=== PATIENT | female | born 1995 | race Caucasian/White ===

== ENCOUNTER 2018-02-22 12:40 | Emergency (ER) | payer MEDICAID, SELFPAY ==
[2018-02-22 12:58] VITALS: BP 126/59; PULSE 88; RESP 16; TEMP 36.8; O2SAT 100
--- NOTE | 2018-02-22 13:43 | W.ED.GENAD ---
Discharge Plan Disposition Patient Disposition: HOME Condition: Good Discharge Details Chief Complaint: Sorethroat Clinical Impression: Infection, respiratory tract Primary Care Provider: Amelia Pedraza ED Provider: Bang Perry Home Meds and New Rx's Prescriptions: New amoxicillin-pot clavulanate [Augmentin] 875-125 mg tablet 1 tab PO BID Qty: 14 RF: 0 Continue omeprazole 20 MG capsule,delayed release(DR/EC) 20 mg PO DAILY RF: 0 Discharge Instructions Instructions: Upper Respiratory Infection (ED) Additional Instructions: Feel free to return to the emergency department for any new or worsening symptoms otherwise follow-up with your primary care provider. You may also take [id number] symptomatic cough and cold medication as needed to relieve your symptoms per Stand Alone Forms: Work Release Discharge Data Discharge Date/Time-TO BE ENTERED AT DEPARTURE: 02/22/18 13:55 Medical Decision Making Patient presenting to the emergency department for chief complaint of sore throat and sinus pressure. Patient states that she had symptoms for 2 weeks then over the past 3 days she thought she improved and last night she began having fever and chills, worsening sinus pressure and sore throat. 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 Physical exam does show some cervical lymphadenopathy but no meningeal signs, moderate sinus tenderness to palpation, normal respiratory and cardiac exam, otherwise unremarkable HEENT exam. Given that patient has double illness sign with subjective fever and chills worsening symptoms I do feel that patient requires antibiotic therapy and patient placed on Augmentin twice daily for 7 days. Patient encouraged to return for any new or worsening symptoms otherwise to follow-up with her primary care provider for reassessment if not improving. After discussion of diagnosis and plan of care patient is no further needs, questions, or concerns and states clear understanding to return to the emergency department for any worsening symptoms. HPI General Mode of arrival: ambulatory. Date/Time Provider Initiated Documentation: 02/22/18 13:31. Limitations to Documentation: no limitations. Information obtained by: patient. History of Present Illness 22 year old F presents to the emergency department with the chief complaint of Sore throat/sinus pressure, described as moderate, with intensity rated at 7. Quality is described as aching, and is localized to the mouth (sore throat). Patient started experiencing this week(s) (3) and it has been intermittent. No relieving factors improve symptom(s), No exacerbating factors reported . Patient did receive the following treatments prior to arrival, none Related Data Home Medications Medication Instructions Recorded Confirmed omeprazole 20 mg PO DAILY 06/13/17 02/22/18 amoxicillin-pot clavulanate 1 tab PO BID #14 tab 02/22/18 [Augmentin] Previous Rx's Medication Instructions Recorded amoxicillin-pot clavulanate 1 tab PO BID #14 tab 02/22/18 [Augmentin] Allergies Allergy/AdvReac Type Severity Reaction Status Date / Time bupropion HCl Allergy Intermediate Hives Unverified 02/22/18 13:01 [From Wellbutrin] General Stated Complaint: Sorethroat RASHAUN: 4 Review of Systems Constitutional Denies body ache(s), Reports chills, Reports fever(s), Reports headache(s) and Reports malaise Eyes Denies eye discharge ENT Denies otalgia, Reports headache(s), Reports nasal congestion, Reports neck pain, Reports sinus pain, Reports sinus pressure, Reports sore throat and Denies throat swelling Cardiovascular Denies chest pain and Denies dyspnea Respiratory Reports cough and Denies dyspnea Musculoskeletal Denies joint swelling and Reports neck pain Integumentary/Breasts Denies rash Neurologic Reports headache(s) Allergic/Immunologic Denies throat swelling PFS Social History Smoking/Tobacco Use Status: Never Exam Const General: cooperative, comfortable and no acute distress Orientation: alert and awake [facility] Head: normal to inspection, normocephalic and atraumatic Ears: hearing grossly normal bilaterally and TM's normal bilaterally General nose exam: external nose normal Face and sinus: no erythema and sinus tenderness frontal, ethmoid and maxillary Mouth: oral mucosae normal, no drooling, no muffled voice and no trismus Throat: posterior oropharynx normal Neck Neck: normal visual inspection, full ROM, lymphadenopathy noted, no meningeal signs, trachea midline and supple Resp Effort & Inspection: normal respiratory effort, able to speak in complete sentences and cough Quality of cough: dry Auscultation: clear to auscultation bilaterally Cardio Rate: regular rate Rhythm: regular rhythm Heart Sounds: S1 normal, S2 normal, normal S1 and S2, no click, no gallops, no murmurs and no rubs Skin General skin exam: no rashes or lesions noted and dry skin (warm) Neuro General: alert, awake, oriented x3, gait normal and moves all extremities Cognition: normal cognition Speech: speech normal Course Vital Signs Temperature 36.8 C 02/22/18 12:58 Pulse 88 02/22/18 12:58 Respiratory Rate 16 02/22/18 12:58 Blood Pressure 126/59 L 02/22/18 12:58 Pulse Oximetry 100 02/22/18 12:58 Temperature 36.8 C 02/22/18 12:58 Temperature Source Skin 02/22/18 12:58 Pulse 88 02/22/18 12:58 Respiratory Rate 16 02/22/18 12:58 Respiratory Effort 02/22/18 13:00 Blood Pressure 126/59 L 02/22/18 12:58 Blood Pressure Position Sitting 02/22/18 12:58 Pulse Oximetry 100 02/22/18 12:58 Oxygen Delivery Method Room Air 02/22/18 12:58 Oxygen Flow Rate 0 02/22/18 12:58 Lab/Test Results Lab/Test Results: 02/22/18 13:05 Pharynx Streptococcus Screen (KENY) - Pending POC Strep Test-EZRA(Rapid) Start: 02/22/18 13:17 Freq: .Rapid Strep Test Status: Active Protocol: Document 02/22/18 13:18 SS (Rec: 02/22/18 13:18 SS [id number]) Strep test-EZRA(Rapid)-POC POC-Strep test-EZRA (Rapid) Negative POC-Strep test-EZRA (Rapid) Negative
--- NOTE | 2018-02-22 13:47 | ED.GENADUL_ITS ---
Discharge Plan Disposition Patient Disposition: HOME Condition: Good Discharge Details Chief Complaint: Sorethroat Clinical Impression: Infection, respiratory tract Primary Care Provider: Amelia Pedraza ED Provider: Bang Perry Home Meds and New Rx's Prescriptions: New amoxicillin-pot clavulanate [Augmentin] 875-125 mg tablet 1 tab PO BID Qty: 14 RF: 0 Continue omeprazole 20 MG capsule,delayed release(DR/EC) 20 mg PO DAILY RF: 0 Discharge Instructions Instructions: Upper Respiratory Infection (ED) Additional Instructions: Feel free to return to the emergency department for any new or worsening symptoms otherwise follow-up with your primary care provider. You may also take [id number] symptomatic cough and cold medication as needed to relieve your symptoms per Stand Alone Forms: Work Release Discharge Data Discharge Date/Time-TO BE ENTERED AT DEPARTURE: 02/22/18 13:55 Medical Decision Making Patient presenting to the emergency department for chief complaint of sore throat and sinus pressure. Patient states that she had symptoms for 2 weeks then over the past 3 days she thought she improved and last night she began having fever and chills, worsening sinus pressure and sore throat. 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 Physical exam does show some cervical lymphadenopathy but no meningeal signs, moderate sinus tenderness to palpation, normal respiratory and cardiac exam, otherwise unremarkable HEENT exam. Given that patient has double illness sign with subjective fever and chills worsening symptoms I do feel that patient requires antibiotic therapy and patient placed on Augmentin twice daily for 7 days. Patient encouraged to return for any new or worsening symptoms otherwise to follow-up with her primary care provider for reassessment if not improving. After discussion of diagnosis and plan of care patient is no further needs, questions, or concerns and states clear understanding to return to the emergency department for any worsening symptoms. HPI General Mode of arrival: ambulatory . Date/Time Provider Initiated Documentation: 02/22/18 13:31 . Limitations to Documentation: no limitations . Information obtained by: patient . History of Present Illness 22 year old F presents to the emergency department with the chief complaint of Sore throat/sinus pressure, described as moderate, with intensity rated at 7. Quality is described as aching, and is localized to the mouth (sore throat). Patient started experiencing this week(s) (3) and it has been intermittent. No relieving factors improve symptom(s), No exacerbating factors reported . Patient did receive the following treatments prior to arrival, none Related Data Home Medications Medication Instructions Recorded Confirmed omeprazole 20 mg PO DAILY 06/13/17 02/22/18 amoxicillin-pot clavulanate 1 tab PO BID #14 tab 02/22/18 [Augmentin] Previous Rx's Medication Instructions Recorded amoxicillin-pot clavulanate 1 tab PO BID #14 tab 02/22/18 [Augmentin] Allergies Allergy/AdvReac Type Severity Reaction Status Date / Time bupropion HCl Allergy Intermediate Hives Unverified 02/22/18 13:01 [From Wellbutrin] General Stated Complaint: Sorethroat RASHAUN: 4 Review of Systems Constitutional Denies body ache(s), Reports chills, Reports fever(s), Reports headache(s) and Reports malaise Eyes Denies eye discharge ENT Denies otalgia, Reports headache(s), Reports nasal congestion, Reports neck pain , Reports sinus pain, Reports sinus pressure, Reports sore throat and Denies throat swelling Cardiovascular Denies chest pain and Denies dyspnea Respiratory Reports cough and Denies dyspnea Musculoskeletal Denies joint swelling and Reports neck pain Integumentary/Breasts Denies rash Neurologic Reports headache(s) Allergic/Immunologic Denies throat swelling PFS Social History Smoking/Tobacco Use Status: Never Exam Const General: cooperative, comfortable and no acute distress Orientation: alert and awake [facility] Head: normal to inspection, normocephalic and atraumatic Ears: hearing grossly normal bilaterally and TM's normal bilaterally General nose exam: external nose normal Face and sinus: no erythema and sinus tenderness frontal, ethmoid and maxillary Mouth: oral mucosae normal, no drooling, no muffled voice and no trismus Throat: posterior oropharynx normal Neck Neck: normal visual inspection, full ROM, lymphadenopathy noted, no meningeal signs, trachea midline and supple Resp Effort & Inspection: normal respiratory effort, able to speak in complete sentences and cough Quality of cough: dry Auscultation: clear to auscultation bilaterally Cardio Rate: regular rate Rhythm: regular rhythm Heart Sounds: S1 normal, S2 normal, normal S1 and S2, no click, no gallops, no murmurs and no rubs Skin General skin exam: no rashes or lesions noted and dry skin (warm) Neuro General: alert, awake, oriented x3, gait normal and moves all extremities Cognition: normal cognition Speech: speech normal Course Vital Signs Temperature 36.8 C 02/22/18 12:58 Pulse 88 02/22/18 12:58 Respiratory Rate 16 02/22/18 12:58 Blood Pressure 126/59 L 02/22/18 12:58 Pulse Oximetry 100 02/22/18 12:58 Temperature 36.8 C 02/22/18 12:58 Temperature Source Skin 02/22/18 12:58 Pulse 88 02/22/18 12:58 Respiratory Rate 16 02/22/18 12:58 Respiratory Effort 02/22/18 13:00 Blood Pressure 126/59 L 02/22/18 12:58 Blood Pressure Position Sitting 02/22/18 12:58 Pulse Oximetry 100 02/22/18 12:58 Oxygen Delivery Method Room Air 02/22/18 12:58 Oxygen Flow Rate 0 02/22/18 12:58 Lab/Test Results Lab/Test Results: 02/22/18 13:05 Pharynx Streptococcus Screen (KENY) - Pending POC Strep Test-EZRA(Rapid) Start: 02/22/18 13: 17 Freq: .Rapid Strep Test Status: Active Protocol: Document 02/22/18 13:18 SS (Rec: 02/22/18 13:18 SS [id number]) Strep test-EZRA(Rapid)-POC POC-Strep test-EZRA (Rapid) Negative POC-Strep test-EZRA (Rapid) Negative
[2018-02-22] MEDS: Amoxicillin 875/Clav. 125 TAB PO (14:00)
== END 2018-02-22 13:55 | disposition home or self-care (01) ==
PROVIDERS: Emergency Provider Nurse Practitioner Family; PCP Registered Nurse
DX: J06.9 Acute upper respiratory infection, unspecified (principal)
CPT/HCPCS: 87880; 99283; 87081

== ENCOUNTER 2018-04-11 14:10 | Outpatient (CLI) | payer MEDICAID, SELFPAY ==
[2018-04-11 15:22] LABS: Bilirubin Negative (Negative); Blood Negative (Negative); Clarity Clear; Glucose Negative (Negative); Ketones Negative (Negative); Leukocyte Esterase Negative (Negative); Nitrite Negative (Negative); Specific Gravity 1.015 (1.005-1.025); Urobilinogen 0.2 EU/dL (Up TO 0.2); pH 5.5 (5-8)
== END 2018-04-11 14:30 ==
PROVIDERS: PCP Registered Nurse; Visit Provider Registered Nurse
DX: N39.0 Urinary tract infection, site not specified (principal)
CPT/HCPCS: 81003

== ENCOUNTER 2018-07-16 10:27 | Emergency (ER) | payer MEDICAID, SELFPAY ==
[2018-07-16 10:29] VITALS: BP 132/79; PULSE 125; TEMP 36.7; O2SAT 98
--- NOTE | 2018-07-16 10:40 | W.ED.GENAD ---
Discharge Plan Disposition Patient Disposition: HOME Condition: Stable Discharge Details Chief Complaint: RespSymp Clinical Impression: URI (upper respiratory infection) Primary Care Provider: Amelia Pedraza ED Provider: Bang Perry Home Meds and New Rx's Prescriptions: New benzonatate 200 mg capsule 200 mg PO TID PRN (Reason: cough) Qty: 30 RF: 0 Continued omeprazole 20 MG capsule,delayed release(DR/EC) 20 mg PO DAILY RF: 0 Discontinued amoxicillin-pot clavulanate [Augmentin] 875-125 mg tablet 1 tab PO BID Qty: 14 RF: 0 Discharge Instructions Instructions: Upper Respiratory Infection (ED) Additional Instructions: You may take gexl-mef-eproaws cough and cold medication such as Tylenol cold and flu severe, DayQuil or NyQuil, or other symptomatic treatments that are available [id number] just take as directed on packaging. Return immediately to the emergency department or get reassessment with your primary care provider for any significant worsening of symptoms or return of fever after you have had illness 1 week. Stay well-hydrated and get plenty of rest during illness. Stand Alone Forms: Work Release Referrals: Amelia Pedraza [Primary Care Provider] - (As needed for reassessment) Medical Decision Making Patient presenting to the emergency department for chief complaint of cold-like symptoms. Patient states proximally 4 days ago she started having significant nasal congestion, sinus pressure, drainage of her nose, sore throat and cough. 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 Physical exam shows mild posterior pharynx erythema, anterior cervical lymphadenopathy, tachycardia, clear lung sounds no focal findings, otherwise stable nontoxic appearing patient. Plan to check for influenza as I am highly suspicious of this but otherwise do not find any emergent findings suggestive of meningitis, pneumonia, peritonsillar abscess retropharyngeal abscess or epiglottitis. Patient was offered IV fluids due to tachycardia and acute viral illness but she refused IV treatment. Patient given oral hydration pending result. Influenza was negative . Patient reassessed and remained stable with reduction of heart rate.. She states her biggest complaint is her sinus pressure. Given duration of symptoms and patient being afebrile I do not feel that this requires antibiotic says this time as I am more suggestive symptoms of viral etiology so plan to treat symptomatically with [id number] medications along with Tessalon Perles for any secondary associated cough and thorough discussion of return precautions were performed with patient. After discussion of diagnosis and plan of care patient has no further needs, questions, or concerns and states clear understanding to return to the emergency department for any worsening symptoms. HPI General Mode of arrival: ambulatory. Date/Time Provider Initiated Documentation: 07/16/18 10:35. Limitations to Documentation: no limitations. Information obtained by: patient and RN notes reviewed. History of Present Illness 22 year old F presents to the emergency department with the chief complaint of [place] symptoms, described as moderate, with intensity rated at 6. Quality is described as aching, and is localized to the face (sinus). Patient started experiencing this day(s) (4) and it has been constant. Patient did receive the following treatments prior to arrival, other (Vics congestion) Related Data Home Medications Medication Instructions Recorded Confirmed omeprazole 20 mg PO DAILY 06/13/17 02/22/18 benzonatate 200 mg PO TID PRN #30 cap 07/16/18 Previous Rx's Medication Instructions Recorded benzonatate 200 mg PO TID PRN #30 cap 07/16/18 Allergies Allergy/AdvReac Type Severity Reaction Status Date / Time bupropion HCl Allergy Intermediate Hives Unverified 07/16/18 10:32 [From Wellbutrin] General Stated Complaint: RespSymp RASHAUN: 3 Review of Systems Constitutional Reports body ache(s), Reports chills, Reports fever(s), Reports headache(s) and Reports malaise Eyes Denies eye discharge ENT Reports as per HPI, Denies ear discharge, Denies otalgia, Reports headache(s), Reports nasal congestion, Reports nasal discharge, Denies neck pain, Reports sinus pain, Reports sinus pressure, Reports sore throat and Denies throat swelling Cardiovascular Denies chest pain and Denies dyspnea Respiratory Reports cough, Reports pain with cough and Denies dyspnea Musculoskeletal Denies joint swelling and Denies neck pain Integumentary/Breasts Denies rash Neurologic Reports headache(s) Allergic/Immunologic Denies throat swelling [facility] Social History Smoking and Tabacco status: Never Exam Const General: cooperative, comfortable and no acute distress Orientation: alert and awake [place] Head: normal to inspection, normocephalic and atraumatic Ears: hearing grossly normal bilaterally and TM's normal bilaterally General nose exam: external nose normal Face and sinus: normal facial exam, sinuses nontender and no erythema Mouth: oral mucosae normal, no drooling, no muffled voice and no trismus Throat: tonsils normal, uvula midline and posterior oropharynx abnormal erythema (mild) Neck Neck: normal visual inspection, full ROM, no meningeal signs, trachea midline, supple and lymphadenopathy (Anterior cervical) Resp Effort & Inspection: normal respiratory effort, able to speak in complete sentences and cough Quality of cough: dry Auscultation: clear to auscultation bilaterally Cardio Rate: tachycardic Rhythm: regular rhythm Heart Sounds: S1 normal, S2 normal, normal S1 and S2, no click, no gallops, no murmurs and no rubs Skin General skin exam: no rashes or lesions noted and dry skin (warm) Neuro General: alert, awake, oriented x3, gait normal and moves all extremities Cognition: normal cognition Speech: speech normal Course Vital Signs Temperature 36.7 C 07/16/18 10:29 Pulse 125 H 07/16/18 10:29 Blood Pressure 132/79 07/16/18 10:29 Pulse Oximetry 98 07/16/18 10:29 Temperature 36.7 C 07/16/18 10:29 Temperature Source Skin 07/16/18 10:29 Pulse 125 H 07/16/18 10:29 Blood Pressure 132/79 07/16/18 10:29 Pulse Oximetry 98 07/16/18 10:29 Pain Level 8 07/16/18 10:29
--- NOTE | 2018-07-16 10:46 | ED.GENADUL_ITS ---
Discharge Plan Disposition Patient Disposition: HOME Condition: Stable Discharge Details Chief Complaint: RespSymp Clinical Impression: URI (upper respiratory infection) Primary Care Provider: Amelia Pedraza ED Provider: Bang Perry Home Meds and New Rx's Prescriptions: New benzonatate 200 mg capsule 200 mg PO TID PRN (Reason: cough) Qty: 30 RF: 0 Continued omeprazole 20 MG capsule,delayed release(DR/EC) 20 mg PO DAILY RF: 0 Discontinued amoxicillin-pot clavulanate [Augmentin] 875-125 mg tablet 1 tab PO BID Qty: 14 RF: 0 Discharge Instructions Instructions: Upper Respiratory Infection (ED) Additional Instructions: You may take kloc-ljr-[id number] cough and cold medication such as Tylenol cold and flu severe, DayQuil or NyQuil, or other symptomatic treatments that are available [id number] just take as directed on packaging. Return immediately to the emergency department or get reassessment with your primary care provider for any significant worsening of symptoms or return of fever after you have had illness 1 week. Stay well-hydrated and get plenty of rest during illness. Stand Alone Forms: Work Release Referrals: Amelia Pedraza [Primary Care Provider] - (As needed for reassessment) Medical Decision Making Patient presenting to the emergency department for chief complaint of cold-like symptoms. Patient states proximally 4 days ago she started having significant nasal congestion, sinus pressure, drainage of her nose, sore throat and cough. 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 Physical exam shows mild posterior pharynx erythema, anterior cervical lymphadenopathy, tachycardia, clear lung sounds no focal findings, otherwise stable nontoxic appearing patient. Plan to check for influenza as I am highly suspicious of this but otherwise do not find any emergent findings suggestive of meningitis, pneumonia, peritonsillar abscess retropharyngeal abscess or epiglottitis. Patient was offered IV fluids due to tachycardia and acute viral illness but she refused IV treatment. Patient given oral hydration pending result. Influenza was negative . Patient reassessed and remained stable with reduction of heart rate.. She states her biggest complaint is her sinus pressure. Given duration of symptoms and patient being afebrile I do not feel that this requires antibiotic says this time as I am more suggestive symptoms of viral etiology so plan to treat symptomatically with vekr-[id number] medications along with Tessalon Perles for any secondary associated cough and thorough discussion of return precautions were performed with patient. After discussion of diagnosis and plan of care patient has no further needs, questions, or concerns and states clear understanding to return to the emergency department for any worsening symptoms. HPI General Mode of arrival: ambulatory . Date/Time Provider Initiated Documentation: 07/16/18 10:35 . Limitations to Documentation: no limitations . Information obtained by: patient and RN notes reviewed . History of Present Illness 22 year old F presents to the emergency department with the chief complaint of [place] symptoms, described as moderate, with intensity rated at 6. Quality is described as aching, and is localized to the face (sinus). Patient started experiencing this day(s) (4) and it has been constant. Patient did receive the following treatments prior to arrival, other (Vics congestion) Related Data Home Medications Medication Instructions Recorded Confirmed omeprazole 20 mg PO DAILY 06/13/17 02/22/18 benzonatate 200 mg PO TID PRN #30 cap 07/16/18 Previous Rx's Medication Instructions Recorded benzonatate 200 mg PO TID PRN #30 cap 07/16/18 Allergies Allergy/AdvReac Type Severity Reaction Status Date / Time bupropion HCl Allergy Intermediate Hives Unverified 07/16/18 10:32 [From Wellbutrin] General Stated Complaint: RespSymp RASHAUN: 3 Review of Systems Constitutional Reports body ache(s), Reports chills, Reports fever(s), Reports headache(s) and Reports malaise Eyes Denies eye discharge ENT Reports as per HPI, Denies ear discharge, Denies otalgia, Reports headache(s), Reports nasal congestion, Reports nasal discharge, Denies neck pain, Reports sinus pain, Reports sinus pressure, Reports sore throat and Denies throat swelling Cardiovascular Denies chest pain and Denies dyspnea Respiratory Reports cough, Reports pain with cough and Denies dyspnea Musculoskeletal Denies joint swelling and Denies neck pain Integumentary/Breasts Denies rash Neurologic Reports headache(s) Allergic/Immunologic Denies throat swelling [facility] Social History Smoking and Tabacco status: Never Exam Const General: cooperative, comfortable and no acute distress Orientation: alert and awake HENAZ Head: normal to inspection, normocephalic and atraumatic Ears: hearing grossly normal bilaterally and TM's normal bilaterally General nose exam: external nose normal Face and sinus: normal facial exam, sinuses nontender and no erythema Mouth: oral mucosae normal, no drooling, no muffled voice and no trismus Throat: tonsils normal, uvula midline and posterior oropharynx abnormal erythema (mild) Neck Neck: normal visual inspection, full ROM, no meningeal signs, trachea midline, supple and lymphadenopathy (Anterior cervical) Resp Effort & Inspection: normal respiratory effort, able to speak in complete sentences and cough Quality of cough: dry Auscultation: clear to auscultation bilaterally Cardio Rate: tachycardic Rhythm: regular rhythm Heart Sounds: S1 normal, S2 normal, normal S1 and S2, no click, no gallops, no murmurs and no rubs Skin General skin exam: no rashes or lesions noted and dry skin (warm) Neuro General: alert, awake, oriented x3, gait normal and moves all extremities Cognition: normal cognition Speech: speech normal Course Vital Signs Temperature 36.7 C 07/16/18 10:29 Pulse 125 H 07/16/18 10:29 Blood Pressure 132/79 07/16/18 10:29 Pulse Oximetry 98 07/16/18 10:29 Temperature 36.7 C 07/16/18 10:29 Temperature Source Skin 07/16/18 10:29 Pulse 125 H 07/16/18 10:29 Blood Pressure 132/79 07/16/18 10:29 Pulse Oximetry 98 07/16/18 10:29 Pain Level 8 07/16/18 10:29
[2018-07-16 11:21] VITALS: PULSE 107
== END 2018-07-16 11:29 | disposition home or self-care (01) ==
PROVIDERS: Emergency Provider Nurse Practitioner Family; PCP Registered Nurse
DX: J06.9 Acute upper respiratory infection, unspecified (principal)
CPT/HCPCS: 87449; 99283

== ENCOUNTER 2021-11-12 19:02 | Outpatient (REF) | payer MEDICAID, SELFPAY | END 2021-11-12 19:03 | disposition home or self-care (01) | LOC: LBN 19:02 | PROVIDERS: PCP Registered Nurse; Visit Provider Physician Assistant Medical | DX: J02.9 Acute pharyngitis, unspecified (principal) | CPT/HCPCS: 87070 ==

== ENCOUNTER 2021-12-19 16:47 | Outpatient (REF) | payer MEDICAID, SELFPAY | END 2021-12-19 16:48 | disposition home or self-care (01) | LOC: LBN 16:47 | PROVIDERS: PCP Registered Nurse; Visit Provider Physician Assistant Medical | DX: R30.0 Dysuria (principal) | CPT/HCPCS: 87077; 87086; 87186 ==

== ENCOUNTER 2024-06-03 13:32 | Emergency (ER) | payer MEDICAID, SELFPAY ==
[2024-06-03 13:39] VITALS: BP 120/80; PULSE 103; RESP 18; TEMP 36.5; O2SAT 99
[2024-06-03 13:42] VITALS: BP 120/80; PULSE 103; RESP 18; TEMP 36.5; O2SAT 99
[2024-06-03 13:48] VITALS: RESP 18
[2024-06-03] MEDS: Ketorolac 15 MG/ML VIAL IM (14:09)
--- NOTE | 2024-06-03 14:31 | ED.GENADUL_ITS ---
Discharge Plan Disposition Patient Disposition: Home Discharge Details Clinical Impression: Viral respiratory illness Primary Care Provider: Amelia Pedraza ED Provider: Bang Perry Home Meds and New Rx's Prescriptions: No Action fluoxetine 20 mg capsule 20 mg PO DAILY Mirena 21 mcg/24hr (up to 8 yrs) 52 mg intrauterine device 1 device intrauterine ONCE Rx Instructions: as a single dose Discharge Instructions Instructions: Upper Respiratory Infection ED Additional Instructions: Please stay well-hydrated and get plenty of rest. You may use appropriate oqwp-hap-[id number] medication as directed on packaging Feel free to return the emergency department for any new or significant worsening of symptoms otherwise follow-up with primary care provider as needed Stand Alone Forms: Work Release Referrals: Primary Care Provider [Outside] HPI General Date/Time Provider Initiated Documentation: 06/03/24 13:45 . Limitations to Documentation: no limitations . Information obtained by: patient and RN notes reviewed . History of Present Illness 28 year old F presents to the emergency department with the chief co mplaint of Cough and cold symptoms, described as moderate, Patient started experiencing this day(s) (3) and it has been constant. No relieving factors improve symptom(s), No exacerbating factors reported . Patient notes cough, fever/chills, headaches and malaise; denies rash and shortness of breath. Patient did receive the following treatments prior to arrival, NSAID Related Data Home Medications ?Medication ?Instructions ?Recorded ?Confirmed fluoxetine 20 mg capsule 20 mg PO DAILY 12/19/21 06/03/24 levonorgestrel 21 mcg/24 hr (up to 1 device intrauterine ONCE 06/03/24 06/03/24 8 years) 52 mg intrauterine device (Mirena) Allergies Allergy/AdvReac Type Severity Reaction Status Date / Time bupropion HCl (From Allergy Intermediate Hives Unverified 06/03/24 13:41 Wellbutrin) General Stated Complaint: GenMedical RASHAUN: 3 Review of Systems Constitutional Constitutional: Reports body ache(s), Reports chills, Reports fever(s), Reports headache(s) and Reports malaise Eyes Eyes: Denies eye discharge ENT Ears, Nose, Mouth, and Throat: Reports as per HPI, Denies ear discharge, Reports headache(s), Reports nasal congestion, Reports nasal discharge, Denies neck pain, Reports sore throat and Denies throat swelling Cardiovascular Cardiovascular: Denies chest pain and Denies dyspnea Respiratory Respiratory: Reports cough and Denies dyspnea Musculoskeletal Musculoskeletal: Denies joint swelling and Denies neck pain Integumentary/Breasts Skin/Breast: Denies rash Neurologic Neurologic: Reports headache(s) Allergic/Immunologic Allergic/Immunologic: Denies throat swelling Exam Const General: cooperative, comfortable and no acute distress Orientation: alert and awake [facility] Head: normal to inspection, normocephalic and atraumatic Ears: hearing grossly normal bilaterally, TM normal on the right, mastoids normal and TM abnormal erythematous (Mild) on the left; not bulging, not with effusion, with no fluid behind the TM and with no loss of landmarks General nose exam: external nose normal Face and sinus: normal facial exam and no erythema Mouth: oral mucosae normal, no drooling, no muffled voice and no trismus Throat: tonsils normal and posterior oropharynx abnormal erythema Neck Neck: normal visual inspection, full ROM, no lymphadenopathy, no meningeal signs and trachea midline Resp Effort & Inspection: normal respiratory effort, able to speak in complete sentences and cough Quality of cough: dry Auscultation: clear to auscultation bilaterally Cardio Rate: regular rate Rhythm: regular rhythm Heart Sounds: S1 normal, S2 normal, normal S1 and S2, no click, no gallops, no murmurs and no rubs Skin General skin exam: no rashes or lesions noted and dry skin (warm) Neuro General: patient alert, patient awake, patient oriented x3, gait normal and moves all extremities Cognition: normal cognition Speech: speech normal Course Vital Signs Vital signs: Vital Signs Temperature 36.5 C 06/03/24 13:39 Pulse 103 H 06/03/24 13:39 Respiratory Rate 18 06/03/24 13:39 Blood Pressure 120/80 06/03/24 13:39 Pulse Oximetry 99 06/03/24 13:39 Temperature 36.5 C 06/03/24 13:42 Pulse 103 H 06/03/24 13:42 Respiratory Rate 18 06/03/24 13:48 Respiratory Effort Normal, Non-Labored 06/03/24 13:48 Respiratory Depth Normal 06/03/24 13:48 Respiratory Pattern Normal 06/03/24 13:48 Blood Pressure 120/80 06/03/24 13:42 Pulse Oximetry 99 06/03/24 13:42 Medical Decision Making Patient presenting to the clinic for chief complaint of cold symptoms. Patient reports symptoms have been going on for the past 3 days. reports headache, otalgia, nasal congestion, and sore throat. Physical exam shows mild posterior pharynx and tonsillar erythema, very mild left ear erythema to the TM without effusion or purulence, otherwise clear lung sounds and otherwise unremarkable exam. Patient has no signs of meningitis, peritonsillar abscess, retropharyngeal abscess, Wojciech's angina, or life-threatening Airway infection. 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 Conservative management discussed along with follow-up and return precautions. After discussion of diagnosis and plan of care patient has no further needs, questions, or concerns and states clear understanding to return to the emergency department for any worsening symptoms. This documentation was generated using [employer] system, please disregard any oddities of phrase or misspellings. Lab Data Lab results reviewed: Yes I reviewed the patient's lab results. Quality:SDOH Health Related Social Needs: No Data to Display PFSH All Active Problems (Updated 06/03/24 @ 14:50 by Bang Perry NP) Viral respiratory illness (Acute) Social History Smoking/Tobacco Use Status: Current every day Tobacco Type: e-cigarettes Smoking risk assessment performed?: Yes Alcohol Intake: current Alcohol Intake frequency: 0-2 drinks per day Drug use: Daily Substance use type: marijuana Do you feel safe in your relationship?: Yes PAWSS Have you Been Recently Intoxicated or Drunk Within the Last 30 days?: No Have you Ever Experienced Previous Episodes of Alcohol Withdrawal?: No Have you ever Experienced Withdrawal Seizures?: No Have you ever Experienced Delirium Tremens(DT)s?: No Have you ever undergone Alcohol Rehabilitation Treatment (i.e, inpt ot outpatient treatment programs)?: No Have you ever Experienced Blackouts?: No Have you ever Combined Alcohol with other Downers within the last 90 days?: No Have you ever Combined Alcohol with any other Substance of Abuse during the last 90 days?: No Positive Blood Alcohol level on Presentation? [PCS.BAL]: No Evidence of Increased Autonomic Activity (i.e. HR>120, tremor, sweating, agitation, nausea)?: No Result: 0
[2024-06-03 14:39] LABS: COVID-19 PCR Negative (Negative); Influenza A PCR Negative (Negative); Influenza B PCR Negative (Negative); RSV PCR Negative (Negative)
[2024-06-03 14:40] LABS: Source Nasopharynx
[2024-06-03 14:58] VITALS: BP 116/68; PULSE 70; RESP 16; O2SAT 98
== END 2024-06-03 15:02 | disposition home or self-care (01) ==
LOC: ER 15:01
PROVIDERS: Emergency Provider Nurse Practitioner Family; PCP Registered Nurse
DX: J98.8 Other specified respiratory disorders (principal); B97.89 Other viral agents as the cause of diseases classified elsewhere; F17.290 Nicotine dependence, other tobacco product, uncomplicated
CPT/HCPCS: 87637; 96372; 99284; 99283; J1885

== ENCOUNTER 2024-10-15 13:45 | Emergency (ER) | payer MEDICAID, SELFPAY ==
[2024-10-15 13:46] VITALS: BP 149/94; PULSE 98; RESP 16; TEMP 36.7; O2SAT 98
--- NOTE | 2024-10-15 14:00 | DI.RAD_ITS ---
Exam(s) XR CHEST 2V PA LATERAL EXAM: XR CHEST 2V PA LATERAL CLINICAL HISTORY: cough TECHNIQUE: 2D digital imaging was performed of the chest. Two images were obtained. PA and lateral views were obtained. COMPARISON: CR CHEST 2 VIEWS PA,LAT from 06/28/2015 FINDINGS: MEDIASTINUM: Normal. HEART: Normal. PULMONARY VASCULATURE: Normal. LUNGS: Clear. PLEURAL SPACE: No pleural effusion or pneumothorax. BONE:Within normal limits for the patient's age. OTHER FINDINGS:Normal. IMPRESSION: No acute pulmonary findings. DATA REPOSITORY: RADIATION DOSE DELIVERED:
--- NOTE | 2024-10-15 14:04 | ED.GENADUL_ITS ---
Discharge Plan Disposition Patient Disposition: Home Condition: Stable Discharge Details Clinical Impression: URI (upper respiratory infection) Primary Care Provider: Amelia Pedraza ED Provider: Polo Coburn Home Meds and New Rx's Prescriptions: New prednisone 20 mg tablet 60 mg PO DAILY 4 Days Qty: 12 0RF Continued Mirena 21 mcg/24hr (up to 8 yrs) 52 mg intrauterine device 1 device intrauterine ONCE Rx Instructions: as a single dose Discharge Instructions Additional Instructions: Your x-ray and Fluvid were negative. You are likely suffering from a viral illness. You can use the albuterol inhaler 2 puffs every 4 hours as needed. If you are not improving this week follow-up with either your primary care provider or express care. If you feel significantly more ill or have severe worsening shortness of breath return to the emergency department for reevaluation. HPI General Mode of arrival: ambulatory . Date/Time Provider Initiated Documentation: 10/15/24 13:53 . Limitations to Documentation: no limitations . Information obtained by: patient . History of Present Illness 29 year old F presents to the emergency department with the chief complaint of cough and chills, described as moderate, Patient started experiencing this day(s) (1) and it has been constant. No relieving factors improve symptom(s), No exacerbating factors reported . Patient notes cough, fever/chills and shortness of breath; denies nausea/vomiting. Patient did receive the foll owing treatments prior to arrival, none Related Data Home Medications ?Medication ?Instructions ?Recorded ?Confirmed levonorgestrel 21 mcg/24 hr (up to 1 device intrauterine ONCE 06/03/24 10/15/24 8 years) 52 mg intrauterine device (Mirena) prednisone 20 mg tablet 60 mg (3 x 20 mg) PO DAILY 4 days 10/15/24 #12 tabs Previous Rx's ?Medication ?Instructions ?Recorded prednisone 20 mg tablet 60 mg (3 x 20 mg) PO DAILY 4 days 10/15/24 #12 tabs Allergies Allergy/AdvReac Type Severity Reaction Status Date / Time bupropion HCl (From Allergy Intermediate Hives Unverified 10/15/24 13:50 Wellbutrin) General Stated Complaint: RespSymp RASHAUN: 3 Review of Systems All systems reviewed & are unremarkable except as noted in HPI and below Constitutional Constitutional: Reports chills, Denies fever(s) and Denies weakness Cardiovascular Cardiovascular: Denies chest pain and Reports dyspnea Respiratory Respiratory: Reports cough and Reports dyspnea Gastrointestinal Gastrointestinal: Denies abdominal pain, Denies nausea and Denies vomiting Neurologic Neurologic: Denies weakness Psychiatric Psychiatric: Denies depression Exam Const General: no acute distress Orientation: alert HENRI Head: normal to inspection Ears: external ears normal General nose exam: external nose normal Mouth: moist mucous membranes Eyes General: appearance normal, both eyes and all related structures Neck Neck: normal visual inspection Resp Effort & Inspection: normal respiratory effort and able to speak in complete sentences Auscultation: rhonchi and wheezes Cardio Rate: regular rate Skin General skin exam: no rashes or lesions noted Neuro General: patient alert and patient oriented x3 Extrem General: normal to inspection Psych Mental Status: mental status grossly normal Course Vital Signs Vital signs: Vital Signs Temperature 36.7 C 10/15/24 13:46 Pulse 98 H 10/15/24 13:46 Respiratory Rate 16 10/15/24 13:46 Blood Pressure 149/94 H 10/15/24 13:46 Pulse Oximetry 98 10/15/24 13:46 Temperature 36.7 C 10/15/24 13:46 Temperature Source Oral 10/15/24 13:46 Pulse 98 H 10/15/24 13:46 Respiratory Rate 16 10/15/24 13:46 Blood Pressure 149/94 H 10/15/24 13:46 Blood Pressure Position Sitting 10/15/24 13:46 Pulse Oximetry 98 10/15/24 13:46 Oxygen Delivery Method Room Air 10/15/24 13:46 Oxygen Flow Rate 0 10/15/24 13:46 Pain Level 9 10/15/24 13:46 Medical Decision Making 29-year-old female who denies any chronic medical problems but states she vapes and uses marijuana comes in with chief complaint of 1 day of chills and intermittently productive cough. Denies any IV drug use, travel, chest pain though she says it feels tight when she tries to take a deep breath then. She is speaking in full sentences, she has no JVD or leg swelling or calf tenderness. She has rhonchi at the bases bilaterally with mild apical wheezing bilaterally. I suspect a respiratory infection, I will check a Fluvid and also a chest x-ray. I will treat her symptoms with a DuoNeb and prednisone. I do not feel blood work is indicated given lack of fevers and her well appearance I doubt entities such as sepsis. X-ray and Fluvid negative. Patient feels better after DuoNeb and lungs are now clear on exam. I suspect viral illness, will Provide short course of prednisone and also advised to follow-up with her PCP if not improving this week and return precautions given. Differential Diagnosis Differential Diagnosis: URI, COVID, pneumonia, reactive airway disease Quality:SDOH Health Related Social Needs: No Data to Display PFSH All Active Problems (Updated 10/15/24 @ 14:58 by Polo Coburn MD) URI (upper respiratory infection) (Acute) Social History Smoking/Tobacco Use Status: Current every day Tobacco Type: e-cigarettes Smoking risk assessment performed?: Yes Alcohol Intake: current Alcohol Intake frequency: 0-2 drinks per day Drug use: Daily Substance use type: marijuana Do you feel safe at home: Yes Do you feel safe in your relationship?: Yes PAWSS Have you Been Recently Intoxicated or Drunk Within the Last 30 days?: No Have you Ever Experienced Previous Episodes of Alcohol Withdrawal?: Yes Have you ever Experienced Withdrawal Seizures?: No Have you ever Experienced Delirium Tremens(DT)s?: No Have you ever undergone Alcohol Rehabilitation Treatment (i.e, inpt ot outpatient treatment programs)?: No Have you ever Experienced Blackouts?: No Have you ever Combined Alcohol with other Downers within the last 90 days?: No Have you ever Combined Alcohol with any other Substance of Abuse during the last 90 days?: No Positive Blood Alcohol level on Presentation? [PCS.BAL]: Unable to Obtain Evidence of Increased Autonomic Activity (i.e. HR>120, tremor, sweating, agitation, nausea)?: No Result: 1
[2024-10-15 14:35] VITALS: BP 149/94; PULSE 98; RESP 18; TEMP 36.7; O2SAT 98
[2024-10-15 14:36] LABS: COVID-19 PCR Negative (Negative); Influenza A PCR Negative (Negative); Influenza B PCR Negative (Negative); RSV PCR Negative (Negative); Source Nasopharynx
[2024-10-15 14:41] VITALS: RESP 18; RESP 5
[2024-10-15] MEDS: Albuterol/Ipratropium 3 ML UPD VIAL UPD (14:41)
[2024-10-15] MEDS: predniSONE 20 MG TAB 60 MG PO (14:41)
[2024-10-15 15:05] VITALS: BP 132/74; PULSE 78; RESP 18; O2SAT 98
[2024-10-15] MEDS: Albuterol HFA 8 GM 60 PUFF INH IH (18:28)
--- NOTE | 2024-10-15 18:29 | NUR.NOTE ---
Patient returning to ER to receive her ordered ventolin inhaler and spacer.
== END 2024-10-15 15:06 | disposition home or self-care (01) ==
LOC: ER 16:12
PROVIDERS: Emergency Provider Emergency Medicine; PCP Registered Nurse
DX: J06.9 Acute upper respiratory infection, unspecified (principal); R11.0 Nausea; F17.290 Nicotine dependence, other tobacco product, uncomplicated
CPT/HCPCS: 81025; 87637; 94640; 99284; 71046; J7512; J7620

== ENCOUNTER 2024-11-15 14:24 | Emergency (ER) | payer MEDICAID, SELFPAY ==
[2024-11-15 14:45] VITALS: BP 138/98; PULSE 70; RESP 12; TEMP 36.8; O2SAT 98
--- NOTE | 2024-11-15 15:19 | ED.GENADUL_ITS ---
Discharge Plan Disposition Patient Disposition: Home Condition: Good Discharge Details Clinical Impression: Pharyngitis, Acute upper respiratory infection Primary Care Provider: Amelia Pedraza ED Provider: Robert Dutta Home Meds and New Rx's Prescriptions: No Action ondansetron 4 mg tablet,disintegrating 4 mg PO Q8H PRN (Reason: nausea and vomiting) Qty: 30 0RF Mirena 21 mcg/24hr (up to 8 yrs) 52 mg intrauterine device 1 device intrauterine ONCE Rx Instructions: as a single dose Discharge Instructions Instructions: Viral Pharyngitis Additional Instructions: At this time your strep test has returned negative. I am concerned that this is secondary to a viral infection that is causing your symptoms. However we have sent your strep test for culture, if this does come back positive, we will contact you for appropriate treatment change. In the meantime please take Tylenol and Motrin as needed for pain. You can take 1000 mg of Tylenol and 800 mg of ibuprofen every 6 hours. These are the maximum doses. Please drink plenty of fluids and stay well-hydrated. Get plenty of rest. If you notice any worsening of your symptoms, or any new symptoms such as vomiting, diarrhea, fever, chills, shortness of breath, chest pain, numbness, weakness, or fainting , please return immediately to the emergency department for reevaluation. Please follow up with your primary care provider as soon as possible for reassessment and reevaluation. As always, it was a pleasure participating in your medical care today. Stand Alone Forms: Work Release Referrals: Amelia Pedraza [Primary Care Provider, [facility]] [facility] General Date/Time Provider Initiated Documentation: 11/15/24 14:56 . HPI Narrative: This is a 29-year-old female with a past medical history of control, who presents today for evaluation of sore throat, chills, fever, mild myalgias. Symptoms have been present for the last 24 hours. 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 She states that this is what she has felt like in the past she has strep throat. No other complaints at this time. She denies any lesions on her hands or feet. She denies any chest pain or shortness of breath. She denies any neck stiffness. No other complaints. Related Data Home Medications ?Medication ?Instructions ?Recorded ?Confirmed levonorgestrel (Mirena) 1 device intrauterine ONCE 0 06/03/24 11/15/24 ondansetron 4 mg disintegrating 4 mg PO Q8H PRN nausea and 10/15/24 11/15/24 tablet vomiting #30 tabs Previous Rx's ?Medication ?Instructions ?Recorded ondansetron 4 mg disintegrating 4 mg PO Q8H PRN nausea and 10/15/24 tablet vomiting #30 tabs Allergies Allergy/AdvReac Type Severity Reaction Status Date / Time bupropion HCl (From Allergy Intermediate Hives Verified 11/15/24 14:48 Wellbutrin) General Stated Complaint: Sorethroat RASHAUN: 4 Exam Narrative Exam Narrative: 1.Const: Well-nourished, Well-developed, appearing stated age 2.Eyes: PERRL, no conjunctival injection, and symmetrical lids. 3.ENT: Atraumatic external nose and ears. Moist MM. Neck: Symmetric, trachea midline, No thyromegaly. Single small erythematous lesion on the right tonsil, no evidence peritonsillar abscess, no significant purulence. Mild erythema in the posterior oropharynx and on the uvula, but no large ulcerated lesions on the soft palate. No evidence of Ludewig's angina, or airway compromise. Tympanic membrane's are castañeda and pearly 4.CVS: +S1/S2, Peripheral pulses 2+ and equal in all extremities. Brisk capillary refill in all extremities. 5.RESP: Unlabored respiratory effort. Clear to auscultation bilaterally. No wheezes rales or rhonchi 6.GI: Soft, Nontender/Nondistended, No hepatosplenomegaly. No guarding or rebound. 7.MSK: Normocephalic/Atraumatic, Extremities w/o deformity or ttp No cyanosis or clubbing, Normal movement of all extremities 8.Skin: Warm, Dry. No rashes or lesions. 9.Neuro: cloud engagement partner II-XII grossly intact. Sensation grossly intact, no focal neurologic deficits. 10.Psych: (AAO) x3. Appropriate mood and affect Course Vital Signs Vital signs: Vital Signs Temperature 36.8 C 11/15/24 14:45 Pulse 70 11/15/24 14:45 Respiratory Rate 12 11/15/24 14:45 Blood Pressure 138/98 H 11/15/24 14:45 Pulse Oximetry 98 11/15/24 14:45 Temperature 36.8 C 11/15/24 14:45 Temperature Source Oral 11/15/24 14:45 Pulse 70 11/15/24 14:45 Respiratory Rate 12 11/15/24 14:45 Blood Pressure 138/98 H 11/15/24 14:45 Blood Pressure Position Sitting 11/15/24 14:45 Pulse Oximetry 98 11/15/24 14:45 Oxygen Delivery Method Room Air 11/15/24 14:45 Oxygen Flow Rate 0 11/15/24 14:45 Pain Level 8 11/15/24 14:45 Lab/Test Results Lab/Test Results: 11/15/24 14:40 Pharynx Group A Streptococcus Culture - Pending POC Strep Test-EZRA(Rapid) Start: 11/15/24 14:48 Freq: .Rapid Strep Test Status: Active Protocol: Document 11/15/24 14:58 AP (Rec: 11/15/24 14:58 AP [id number]) Strep test-EZRA(Rapid)-POC POC-Strep test-EZRA ( Negative Rapid) POC-Strep test-EZRA (Rapid) Negative Medical Decision Making This is a 29-year-old female with a past medical history of control, who presents today for evaluation of sore throat, chills, fever, mild myalgias. Symptoms have been present for the last 24 hours. 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 She states that this is what she has felt like in the past she has strep throat. No other complaints at this time. She denies any lesions on her hands or feet. She denies any chest pain or shortness of breath. She denies any neck stiffness. No other complaints. Exam demonstrates a well-appearing female, no nuchal rigidity or neck stiffness. Mild erythema in the posterior oropharynx, without evidence of peritonsillar abscess, significant tonsillitis, and multiple ulcers on the mouth or tonsils. Concern for viral etiology, strep test was negative. Will send for culture. Differential still includes potential early herpangina or rzvp-melf-iet-mouth. Will recommend supportive therapy of NSAIDs, honey 2 tablespoons every 6 hours, plenty fluids sleep and rest. Will contact the patient if her strep cultures returned positive. Patient otherwise stable for discharge with no evidence to suggest meningitis or other life-threatening etiology. Discussed red flags for which to return. I have extensively reviewed the treatment plan and discharge instructions with the patient. I have addressed all patient concerns at this time. The patient was made aware of what symptoms to monitor for that would warrant a return to the emergency department. Discussed the plan with the patient, they demonstrate verbal understanding and agreement with our assessment and plan at this time. The documentation in this chart was dictated using [employer] dictation software. Please excuse any dictation errors. PFSH All Active Problems (Updated 11/15/24 @ 15:21 by Robert Dutta DO) Acute upper respiratory infection (Acute) Pharyngitis (Acute) Social History Smoking/Tobacco Use Status: Current every day Tobacco Type: e-cigarettes Smoking risk assessment performed?: Yes Alcohol Intake: current Alcohol Intake frequency: 0-2 drinks per day Drug use: Daily Substance use type: marijuana Do you feel safe at home: Yes Do you feel safe in your relationship?: Yes
== END 2024-11-15 15:29 | disposition home or self-care (01) ==
PROVIDERS: Emergency Provider Student in an Organized Health Care Education/Training Program; PCP Registered Nurse
DX: J02.9 Acute pharyngitis, unspecified (principal); J06.9 Acute upper respiratory infection, unspecified
CPT/HCPCS: 87880; 99283; 87081

== ENCOUNTER 2025-03-15 12:51 | Emergency (ER) | payer MEDICAID, SELFPAY ==
[2025-03-15 12:54] VITALS: BP 124/88; PULSE 108; RESP 18; TEMP 36.6; O2SAT 99
--- NOTE | 2025-03-15 13:15 | W.ED.GENAD ---
Discharge Plan Disposition Patient Disposition: Home Condition: Stable Discharge Details Clinical Impression: COVID-19 Primary Care Provider: Amelia Pedraza ED Provider: Alicja Quinonez Home Meds and New Rx's Prescriptions: No Action Mirena 21 mcg/24hr (up to 8 yrs) 52 mg intrauterine device 1 device intrauterine ONCE Rx Instructions: as a single dose Discharge Instructions Instructions: COVID-19 ED Additional Instructions: You were seen in the emergency department today for evaluation of cough and shortness of breath and were found to have COVID-19. You also had a x-ray performed of your chest that does not show any sign of pneumonia, bronchitis, and your exam today was quite reassuring with no sign of low oxygen or wheezing. As we discussed, you are out of the range given your symptom duration of 7 days for medication such as Paxlovid. Additionally, with no wheezing you would be unlikely to experience benefit from an albuterol inhaler. I did place a referral for you to establish with a primary care provider, who should reevaluate you and ensure that you are improving as expected. Please use therapeutic dosing of Tylenol (acetaminophen) & Advil (ibuprofen) in an alternating fashion as follows: Take 1000mg of Tylenol every 6 hours without missing doses- that is 4 times per day. Penitentiary in between the Tylenol doses, take 600mg of Advil also on a 6 hour schedule, that is also 4 times per day. With this strategy, you will be taking something for fever/pain as often as every 3 hours. The daily maximum dosing of Tylenol is 4000mg, and the daily maximum dosing of Advil is 2400mg. Please note that some common cold medications & prescription pain medications may contain acetaminophen and you need to read OTC drug labels and factor that in to maximum daily doses. Please follow-up with your primary care provider in the next few days to discuss this visit and any symptoms that change, worsen, or persist. Thank you for allowing us to be part of your care. Stand Alone Forms: Work Release HPI General Mode of arrival: ambulatory. Date/Time Provider Initiated Documentation: 03/15/25 12:56. Limitations to Documentation: no limitations. Information obtained by: patient and old records reviewed. HPI Narrative: This is a 29-year-old female patient without significant past medical history presenting for evaluation of 7 days of upper respiratory symptoms including runny nose, cough, and shortness of breath. The patient reports that she has been sick at home, has had intermittent subjective fevers, and her family member who lives at home just got sick with similar symptoms the other day. She has not yet gotten her vaccines this year, states that she has been eating and drinking typically, but has had no success in managing her symptoms at home with Mucinex, Jul[place], etc. The patient reports that her nasal discharge is green and mucousy. Related Data Home Medications Medication Instructions Recorded Confirmed levonorgestrel (Mirena) 1 device intrauterine ONCE 06/03/24 03/15/25 Allergies Allergy/AdvReac Type Severity Reaction Status Date / Time gabapentin Allergy Severe Anaphylaxis Verified 03/15/25 12:57 bupropion HCl (From Allergy Intermediate Hives Verified 03/15/25 12:57 Wellbutrin) General Stated Complaint: RespSymp RASHAUN: 3 Exam Narrative Exam Narrative: Gen: Awake and alert, in no apparent distress HEENT: Non-icteric sclera Neck: Supple Lungs: No apparent respiratory distress, normal respiratory effort. Lung sounds clear and equal bilaterally without wheezing, rhonchi, rales CV: Appears well perfused, heart with regular rate and rhythm, strong distal pulses Abdomen: Non-distended MSK: Moves 4 extremities without apparent limitation in ROM. No unilateral calf swelling or tenderness, no peripheral edema Skin: Visualized skin without rashes, cyanosis. Neuro: Normal Gait, no obvious focal deficits or facial asymmetry. Speaks in full, clear sentences. Psych: Appropriate for situation. Course Vital Signs Vital signs: Vital Signs Temperature 36.6 C 03/15/25 12:54 Pulse 108 H 03/15/25 12:54 Respiratory Rate 18 03/15/25 12:54 Blood Pressure 124/88 03/15/25 12:54 Pulse Oximetry 99 03/15/25 12:54 Temperature 36.6 C 03/15/25 12:54 Temperature Source Tympanic 03/15/25 12:54 Pulse 108 H 03/15/25 12:54 Respiratory Rate 18 03/15/25 12:54 Blood Pressure 124/88 03/15/25 12:54 Pulse Oximetry 99 03/15/25 12:54 Pain Level 8 03/15/25 12:54 Medical Decision Making This is a 29-year-old female patient presenting for evaluation of shortness of breath and upper respiratory symptoms. Differential includes but is not limited to URI, pneumonia, certainly considered bronchitis, and the duration of symptoms is such that this diagnosis may be of importance. Considered sinusitis, patient is reassuringly without systemic symptoms such as fever, persistent tachycardia or hypotension to suggest sepsis or bacteremia. The patient's clinical exam and lack of history is reassuring against CHF exacerbation, pulmonary edema/pleural effusion, pulmonary embolism, pneumothorax. We will obtain a viral swab and a chest x-ray. At this time the patient does not have any indication to move forward with laboratory studies, and is not requiring any treatment for management of symptoms. -Chest x-ray reviewed by myself and shows no focal pulmonary abnormalities to explain her symptoms. Her swab is positive for COVID-19, and this finding was shared with her. Unfortunately, she is out of the window for Paxlovid initiation. I counseled the patient on conservative management. She did request an albuterol inhaler, which I was amenable to providing her although she has no evidence of reactive airway disease exacerbation or wheezing at this time. The patient states then that she does not want to if it is not going to make her feel better, which I suspect it would not given her lack of wheezing and history. I did provide the patient with a referral to establish with a primary care provider, and at this time, the patient has had a full medical evaluation and is safe for discharge to home. They are hemodynamically stable, ambulatory, and tolerating PO. They are understanding of the follow-up plan and return precautions. They left our facility without incident. Alicja Quinonez MD [facility] All Active Problems (Updated 03/15/25 @ 14:21 by Alicja Quinonez MD) COVID-19 (Acute) Social History Smoking/Tobacco Use Status: Current every day Tobacco Type: e-cigarettes Smoking risk assessment performed?: Yes Alcohol Intake: current Alcohol Intake frequency: 0-2 drinks per day Drug use: Daily Substance use type: marijuana Do you feel safe at home: Yes Do you feel safe in your relationship?: Yes
--- NOTE | 2025-03-15 13:27 | DI.RAD_ITS ---
Exam(s) XR CHEST 2V PA LATERAL EXAM: XR CHEST 2V PA LATERAL CLINICAL HISTORY: 9 days cough, stuffy nose. TECHNIQUE: 2D digital imaging was performed. COMPARISON: CR XR CHEST 2V PA LATERAL from 10/15/2024 FINDINGS: 2 views: Heart size is normal. The mediastinum is not widened. Lungs are clear. No infiltrates nor pleural effusions. IMPRESSION: No acute pulmonary findings. DATA REPOSITORY: RADIATION DOSE DELIVERED:
[2025-03-15 14:01] LABS: RSV PCR Negative (Negative)
[2025-03-15 14:10] LABS: COVID-19 PCR Positive (Negative)
[2025-03-15 14:36] VITALS: BP 119/78; PULSE 72; RESP 20; O2SAT 100
== END 2025-03-15 14:38 | disposition home or self-care (01) ==
PROVIDERS: Emergency Provider Emergency Medicine; PCP Registered Nurse
DX: U07.1 COVID-19 (principal); Z11.52 Encounter for screening for COVID-19
CPT/HCPCS: 99283; 99284; 87637; 71046